=== PATIENT | female | born 1990 | race Two or more races ===

== ENCOUNTER 2023-09-30 13:11 | Outpatient (CLI) | payer OTHER | END 2023-09-30 13:15 | disposition home or self-care (01) | LOC: PRENATAL 13:11 | PROVIDERS: ATTEND Obstetrics & Gynecology Maternal & Fetal Medicine | DX: O36.80X0 Pregnancy with inconclusive fetal viability, not applicable or unspecified (principal); Z36.82 Encounter for antenatal screening for nuchal translucency; Z36.9 Encounter for antenatal screening, unspecified; Z3A.13 13 weeks gestation of pregnancy ==

== ENCOUNTER 2024-01-11 14:16 | Outpatient (CLI) | payer OTHER | END 2024-01-11 14:17 | disposition home or self-care (01) | LOC: PRENATAL 14:16 | PROVIDERS: ATTEND Obstetrics & Gynecology Maternal & Fetal Medicine | DX: O26.843 Uterine size-date discrepancy, third trimester (principal); Z3A.28 28 weeks gestation of pregnancy ==

== ENCOUNTER 2024-03-09 14:45 | Outpatient (CLI) | payer OTHER ==
[~2024-03-09 14:45] MED LIST: ADULT LOW DOSE81 M1 PO; ALLEGRA ALLERG180 MG; GLUMETZA500 MG; PRENA1 TRUE CO1 EACH PO; SINGULAIR10 MG PO
== END 2024-03-09 14:46 | disposition home or self-care (01) ==
LOC: PRENATAL 14:45
PROVIDERS: ATTEND Obstetrics & Gynecology Maternal & Fetal Medicine
DX: O26.849 Uterine size-date discrepancy, unspecified trimester (principal); O36.8199 Decreased fetal movements, unspecified trimester, other fetus; O24.419 Gestational diabetes mellitus in pregnancy, unspecified control; Z3A.36 36 weeks gestation of pregnancy

== ENCOUNTER 2024-03-20 05:16 | Inpatient (IN) | payer OTHER ==
[~2024-03-20] VITALS: Ht 157.5 cm; Wt 3.6 kg
[2024-03-20 05:37] VITALS: BP 112/72
[2024-03-20] MEDS ORDERED: AMPICILLIN SODIUM 2,000 MG VIAL IV ONE (06:15)
[2024-03-20] MEDS ORDERED: RINGERS SOLUTION,LACTATED 1,000 ML IV SCH (06:30)
[2024-03-20 06:59] LABS: HEMATOCRIT 32.7 % (36.0-45.00); HEMOGLOBIN 11.1 g/dL (12.0-15.00); MEAN CELL VOLUME 84.4 fL (80.00-100.00); MEAN CORPUSCULAR HEMOGLOBIN 28.7 pg (27.00-32.0); RED BLOOD COUNT 3.87 M/uL (4.00-6.00); RED CELL DISTRIBUTION WIDTH 14.8 % (11.5-14.5)
[2024-03-20 07:00] LABS: PH,URINE 6.5 (5.0-8.0); URINE APPEARANCE Clear; URINE BILIRRUBIN Negative (NEGATIVE); URINE BLOOD Trace; URINE COLOR Yellow; URINE GLUCOSE Negative (NEGATIVE); URINE KETONE 15 (NEGATIVE); URINE LEUKOCYTE Moderate; URINE NITRATE Negative; URINE PROTEIN Negative (NEGATIVE); URINE UROBILINOGEN 0.2 E.U./dl
[2024-03-20 07:04] LABS: PLATELET COUNT 76 K/uL (150-450)
[2024-03-20 07:08] LABS: URINE BACTERIA 6036.5 uL (0.0-1933); URINE EPITHELIAL CELLS 19.1 uL (0.0-38.8); URINE RBC 11.1 uL (0.0-20.8); URINE WBC 138.3 uL (0.0-23.2)
[2024-03-20] MEDS ORDERED: MISOPROSTOL 50 MCG TABLET VAG NR (07:15)
[2024-03-20 07:29] VITALS: BP 123/63
[2024-03-20] MEDS ORDERED: VALTREX1000 MG PO (07:31)
[2024-03-20 07:33] LABS: INR 0.95; PROTHROMBIN TIME 10.4 SECONDS (9.0-11.5)
[2024-03-20 07:35] LABS: URINE CAST 0.61 uL (0.0-1.40)
[2024-03-20 07:58] LABS: MANUAL PLATELET COUNT 272
[2024-03-20 08:03] LABS: ALBUMIN 2.6 gm/dL (3.4-5.0); BILIRUBIN TOTAL 0.36 mg/dL (0.3-1.2); CALCIUM 8.9 mg/dL (8.5-10.1); CREATININE SERUM 0.52 mg/dL (0.55-1.02); GFR 135.8; GLOBULINA 3.6 G/DL (2.4-3.5); POTASSIUM 3.79 mEq/L (3.5-5.1); TOTAL PROTEIN 6.2 gm/dL (6.4-8.2)
[2024-03-20] MEDS ORDERED: AMPICILLIN SODIUM 1,000 MG VIAL IV SCH (09:00)
[2024-03-20] MEDS ORDERED: IPRATROPIU0.2 MG/1 M (09:45)
[2024-03-20 12:00] VITALS: BP 111/63; O2SAT 100
[2024-03-20] MEDS ORDERED: MISOPROSTOL 25 MCG/4 ML GEL.W.APPL VAG ONE (15:15)
[2024-03-20 15:16] VITALS: BP 114/67
[2024-03-20] MEDS ORDERED: DEXTROSE 5 % AND 0.9 % NACL 1,000 ML IV SCH (17:00)
[2024-03-20 19:04] VITALS: BP 111/67
[2024-03-20 23:36] VITALS: BP 97/55
[2024-03-21 03:38] VITALS: BP 99/60
[2024-03-21] MEDS ORDERED: MISOPROSTOL 25 MCG TABLET VAG ONE (07:00)
[2024-03-21 07:48] VITALS: BP 113/70; O2SAT 99
[2024-03-21 12:01] VITALS: BP 107/61; O2SAT 99
[2024-03-21] MEDS ORDERED: CEFAZOLIN SODIUM 1,000 MG VIAL IV SCH (13:45)
[2024-03-21] MEDS ORDERED: ONDANSETRON HCL 2 MG/ML VIAL IV PRN (15:30)
[2024-03-21] MEDS ORDERED: MORPHINE SULFATE 4 MG/ML CARTRIDGE IV PRN (15:30)
[2024-03-21] MEDS ORDERED: ERYTHROMYCIN BASE OPHT 1GM EACH TUBE OP ONE (15:45)
[2024-03-21] MEDS ORDERED: OXYTOCIN 10 UNITS/ML VIAL IV ONE (16:00)
[2024-03-21] MEDS ORDERED: MORPHINE SULFATE 4 MG/ML CARTRIDGE IV SCH (17:15)
[2024-03-21] MEDS ORDERED: SIMETHICONE 125 MG CAPSULE PO SCH (18:00)
[2024-03-21 18:17] VITALS: BP 118/68
[2024-03-21] MEDS ORDERED: METOCLOPRAMIDE HCL 5 MG/ML VIAL IV SCH (19:00)
[2024-03-21] MEDS ORDERED: OXYTOCIN 2,000 ML IV SCH (19:00)
[2024-03-21] MEDS ORDERED: KETOROLAC TROMETHAMINE 30 MG VIAL IV SCH (19:15)
[2024-03-21 20:55] VITALS: BP 107/72
[2024-03-21] MEDS ORDERED: SENNOSIDES 1 TAB TABLET PO SCH (21:00)
[2024-03-22 00:33] VITALS: BP 100/65
[2024-03-22 05:22] VITALS: BP 105/68
[2024-03-22] MEDS ORDERED: ACETAMINOPHEN 500 MG GEL..CAP PO PRN (06:00)
[2024-03-22 07:25] LABS: HEMATOCRIT 29.3 % (36.0-45.00); MEAN CORPUSCULAR HGB CONC 34.1 g/dl (32.0-36.0); RED BLOOD COUNT 3.44 M/uL (4.00-6.00); RED CELL DISTRIBUTION WIDTH 14.8 % (11.5-14.5)
[2024-03-22 07:32] LABS: PLATELET COUNT 68 K/uL (150-450)
[2024-03-22 08:12] VITALS: BP 108/70
[2024-03-22 08:18] LABS: MANUAL PLATELET COUNT 186
[2024-03-22] MEDS ORDERED: IBUprofen 800 MG TABLET PO SCH (09:00)
[2024-03-22 16:00] VITALS: BP 107/71
[2024-03-22] MEDS ORDERED: IRON FUM,PS/FOLIC/BCOMP,C NO.9 1 CAP CAPSULE PO SCH (17:00)
[2024-03-23 00:19] VITALS: BP 107/68
[2024-03-23 06:44] LABS: HEMOGLOBIN 9.2 g/dL (12.0-15.00); MEAN CELL VOLUME 86.2 fL (80.00-100.00); MEAN CORPUSCULAR HEMOGLOBIN 29.4 pg (27.00-32.0); MEAN CORPUSCULAR HGB CONC 34.1 g/dl (32.0-36.0); RED BLOOD COUNT 3.13 M/uL (4.00-6.00); RED CELL DISTRIBUTION WIDTH 14.7 % (11.5-14.5)
[2024-03-23 08:11] LABS: PLATELET COUNT 74 K/uL (150-450)
[2024-03-23 08:45] VITALS: BP 107/68
[2024-03-23] MEDS ORDERED: IBU800 MG PO (14:03)
[2024-03-23] MEDS ORDERED: INTEGRA PLUS C1 EACH PO (14:03)
[2024-03-23] MEDS ORDERED: SURFAK240 M1 PO (14:03)
== END 2024-03-23 14:59 | disposition home or self-care (01) | DRG 787 ==
LOC: LDR 05:16 → O/R 03-21 14:30 → OB/GYN 03-21 15:47
PROVIDERS: Specialist; ADMIT Obstetrics & Gynecology; ATTEND Obstetrics & Gynecology
PROC: 3E0P7VZ Introduction of Hormone into Female Reproductive, Via Natural or Artificial Opening (ICD-10-PCS; 2024-03-20)
PROC: 4A1HXCZ Monitoring of Products of Conception, Cardiac Rate, External Approach (ICD-10-PCS; 2024-03-20)
PROC: 3E033VJ Introduction of Other Hormone into Peripheral Vein, Percutaneous Approach (ICD-10-PCS; 2024-03-21)
PROC: 10D00Z1 Extraction of Products of Conception, Low, Open Approach (ICD-10-PCS; principal; 2024-03-21 13:00)
DX: O61.0 Failed medical induction of labor (principal); O99.12 Other diseases of the blood and blood-forming organs and certain disorders involving the immune mechanism complicating childbirth; O24.424 Gestational diabetes mellitus in childbirth, insulin controlled; O99.52 Diseases of the respiratory system complicating childbirth; O36.63X0 Maternal care for excessive fetal growth, third trimester, not applicable or unspecified; O34.13 Maternal care for benign tumor of corpus uteri, third trimester; D25.9 Leiomyoma of uterus, unspecified; J45.909 Unspecified asthma, uncomplicated; D69.6 Thrombocytopenia, unspecified; O99.214 Obesity complicating childbirth; E66.9 Obesity, unspecified; Z3A.38 38 weeks gestation of pregnancy; Z37.0 Single live birth

== ENCOUNTER 2024-05-12 05:10 | Day surgery (SDC) | payer OTHER ==
[2024-05-08 10:05] LABS: URINE APPEARANCE Clear; URINE BILIRRUBIN Negative (NEGATIVE); URINE BLOOD Negative; URINE COLOR Yellow; URINE GLUCOSE Negative (NEGATIVE); URINE KETONE Negative (NEGATIVE); URINE LEUKOCYTE Trace; URINE NITRATE Negative; URINE PROTEIN Negative (NEGATIVE); URINE UROBILINOGEN 0.2 E.U./dl
[2024-05-08 10:07] LABS: HEMATOCRIT 38.5 % (36.0-45.00); HEMOGLOBIN 12.7 g/dL (12.0-15.00); MEAN CELL VOLUME 84.5 fL (80.00-100.00); MEAN CORPUSCULAR HEMOGLOBIN 27.9 pg (27.00-32.0); PLATELET COUNT 167 K/uL (150-450); RED BLOOD COUNT 4.56 M/uL (4.00-6.00); RED CELL DISTRIBUTION WIDTH 14.8 % (11.5-14.5)
[2024-05-08 10:09] LABS: URINE BACTERIA 585.8 uL (0.0-1933); URINE EPITHELIAL CELLS 15.1 uL (0.0-38.8); URINE RBC 12.9 uL (0.0-20.8); URINE WBC 23.9 uL (0.0-23.2)
[2024-05-08 10:12] LABS: URINE CAST 0.15 uL (0.0-1.40)
[2024-05-08 11:03] LABS: INR 1.03; PARTIAL THROMBOPLASTIN TIME 28.5 SECONDS (22.0-34.0); PROTHROMBIN TIME 11.2 SECONDS (9.0-11.5)
[2024-05-08 11:14] LABS: ALBUMIN 3.6 gm/dL (3.4-5.0); BILIRUBIN TOTAL 0.62 mg/dL (0.3-1.2); CALCIUM 9.1 mg/dL (8.5-10.1); CREATININE SERUM 0.74 mg/dL (0.55-1.02); GFR 90.38; GLOBULINA 3.9 G/DL (2.4-3.5); POTASSIUM 4.44 mEq/L (3.5-5.1); TOTAL PROTEIN 7.5 gm/dL (6.4-8.2)
[~2024-05-12 05:10] MED LIST changes: +IBU800 MG PO; +INTEGRA PLUS C1 EACH PO; +IPRATROPIU0.2 MG/1 M; +SURFAK240 M1 PO; +VALTREX1000 MG PO
[2024-05-12] MEDS ORDERED: CEFAZOLIN SODIUM 1,000 MG VIAL IV ONE (15:15)
[2024-05-12] MEDS ORDERED: LIDOCAINE HCL 1%/EPINEPHRINE 20ML VIAL IJ ONE (15:30)
[2024-05-12] MEDS ORDERED: ISOPROPYL ALCOHOL 30 ML OUNCE TOP ONE (15:30)
[2024-05-12] MEDS ORDERED: BUPIVACAINE HCL 30 ML VIAL IJ ONE (15:30)
[2024-05-12] MEDS ORDERED: MORPHINE SULFATE 4 MG/ML VIAL IV ONE (16:50)
== END 2024-05-12 17:30 | disposition home or self-care (01) ==
LOC: CIR.AMB 05:10
PROVIDERS: ATTEND Surgery
DX: K80.10 Calculus of gallbladder with chronic cholecystitis without obstruction (principal); K43.9 Ventral hernia without obstruction or gangrene